=== PATIENT | male | born 2000 | race Hispanic/Latino ===

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

== ENCOUNTER 2023-04-07 12:41 | Emergency (ER) | payer MEDICAID, OTHER, SELFPAY ==
[2023-04-07] MEDS ORDERED: Lidocaine 1% w/Epinephrine 1:100K 20 ML VIAL ONE (14:21)
[2023-04-07] MEDS ORDERED: Bacitracin 1 PK ONE (15:43)
== END 2023-04-07 16:19 | disposition home or self-care (01) ==
LOC: ERS 12:41
DX: S01.81XA Laceration without foreign body of other part of head, initial encounter (principal); Y93.55 Activity, bike riding; V18.0XXA Pedal cycle driver injured in noncollision transport accident in nontraffic accident, initial encounter
CPT/HCPCS: 12011